=== PATIENT | female | born 1990 | race Caucasian/White ===

== ENCOUNTER 2022-03-11 11:03 | Inpatient (IN) | payer BC, SELFPAY ==
[2022-03-11] VITALS (155 sets, daily range): BP systolic 94–137; BP diastolic 45–108; PULSE 68–122; TEMP 36.4; O2SAT 88–100; BMI 32.1
--- NOTE | 2022-03-11 11:44 | PM.IMHP ---
H&P: HPI History of Present Illness Date/Time: 03/11/22 11:44 Chief Complaint: My water broke Narrative: 31 y/o G1 at 37 5/7 weeks who had a gush of fluid at 0730 this morning, with continued leakage of clear fluid. SROM confirmed grossly in office today, and I asked her to come to L&D to be admitted. GBS neg. uncomplicated. Review of Systems Review of Systems: All systems reviewed & are unremarkable except as noted in HPI and below PMFSH Family History Family History Other Patient denies significant medical history Social History Social History Substance use: never Spiritual care concerns: No Meds Home Medications and Allergies Home Medications Medication Instructions Recorded Confirmed Type prenat.vits,mary,jts-perx-vqqrv 1 tablet PO DAILY 03/04/22 03/04/22 History Allergies Allergy/AdvReac Type Severity Reaction Status Date / Time No Known Allergies Allergy Verified 03/04/22 12:25 Vital Signs Vital Signs - 24 hr 03/11/22 11:31 Pulse Rate 100 Blood Pressure 123/72 Exam Const: Orientation/consciousness: patient oriented x3 Other: Well-developed, well-nourished female in no acute distress. Neck: Thyroid: thyroid normal Lymphatic: no lymphadenopathy noted (in neck, axilla or inguinal nodes) Resp: Effort & Inspection: normal respiratory effort Auscultation: clear to auscultation bilaterally Cardio: Rate: regular rate Rhythm: regular rhythm Heart sounds: S1 normal heart sound present and S2 normal heart sound present GI: Other: ABD: Soft, nontender, nondistended, gravid. FH 36 cm. Vertex. NST reactive. TOCO: irregular contractions. No guarding or rebound tenderness. No hepatosplenomegaly. : General: Yes no CVA tenderness Other: SSE: Gross ROM with clear fluid, nitrazine pos. Cervix 1/50/-2. Back/Spine/Pelvis: Back: no CVA tenderness Skin: General skin exam: normal color and no rashes or lesions noted Neuro: General: patient oriented x3 Extrem: Other: Extremities: nontender with no edema Psych: Mental Status: mental status grossly normal Affect: normal affect Assessment and Plan Assessment and plan (1) SROM (spontaneous rupture of membranes): Status: Acute Assessment and Plan: A: IUP at 37 5/7 weeks gestation with SROM at 0730. P: Augment labor with oxytocin as needed. Anticipate . (2) Term : Code(s): Z34.90 - Encounter for supervision of normal , unspecified, unspecified trimester Status: Acute
[2022-03-11 11:45] LABS: Basophils Percent Auto 0.2 % (0.2-1.2); Eosinophils Percent Auto 0.1 % (0-4.4); Hematocrit 31.3 % (37.0-47.0); Hemoglobin 10.7 g/dL (12.0-15.0); Immature Granulocyte Absolute 0.11 K/mm3 (0.00-0.031); Immature Granulocyte Percent A 0.9 % (0-0.5); Lymphocytes Absolute Auto 1.34 K/mm3 (0.9-3.2); Lymphocytes Percent Auto 10.9 % (18.3-44.2); Mean Corpuscular HGB Conc 34.2 g/dl (32-36); Mean Corpuscular Hemoglobin 30.1 pg (26-34); Mean Corpuscular Volume 88.2 fl (80-100); Mean Platelet Volume 12.1 fl (7.4-10.4); Monocytes Absolute Auto 0.8 K/mm3 (0.1-0.6); Monocytes Percent Auto 6.6 % (2.6-8.5); Neutrophils Absolute Auto 9.9 K/mm3 (1.3-6.7); Neutrophils Percent Auto 81.3 % (45.5-73.1); Platelet Count Result 156 k/mm3 (150-375); Red Blood Count 3.55 M/mm3 (4.2-5.4); Red Cell Distribution Width 12.7 % (11.5-14.5); White Blood Count 12.2 K/mm3 (4.5-10.0)
--- NOTE | 2022-03-11 11:45 | LDADM ---
This patient, Nikia Katz, was admitted to Labor/Delivery/Recovery 104 on 03/11/22 at 11:03. Plans for labor, pain management and were discussed with patient. Patient/family oriented to hospital policies and general routines including ID bracelet, bed and alarms, visiting hours, pain management, procedures, bathroom and other care routines, personal items, smoking policy, room service/diet and guest tray routines, security routines, and visiting hours. Patient/Family are encouraged to report perceived risks to care and to ask questions if they do not understand what they are told or what they should do. See OBIX for further documentation.
[2022-03-11] MEDS: SODIUM CHLORIDE 0.9% IV 300 ML 600 ML I-UTERINE (13:44)
[2022-03-11] MEDS: LACTATED RINGERS 1,000 ML 125 ML IV CONT (14:06)
--- NOTE | 2022-03-11 14:39 | WPDANESEPPF ---
Anes - Initial Pre Proc Eval Date/Time: 03/11/22 14:39 Surgeon: Romeo Davies MD Pre Op Diagnosis: labor Patient Data Age: 31 Gender: F Height: 1.63 m Weight: 85 kg Last Vital Signs Pulse 82 03/11/22 14:31 BP 128/63 03/11/22 14:31 Pulse Ox 100 03/11/22 14:36 O2 Del Method Room Air 03/11/22 11:44 Allergies Allergy/AdvReac Type Severity Reaction Status Date / Time No Known Allergies Allergy Verified 03/04/22 12:25 Home Medications Medication Instructions Recorded Confirmed Type prenat.vits,mary,zrj-ogfh-bygjn 1 tablet PO DAILY 03/04/22 03/04/22 History Laboratory Tests 03/11/22 03/11/22 03/11/22 11:38 11:38 11:38 WBC 12.2 K/mm3 H K/mm3 (4.5-10.0) RBC 3.55 M/mm3 L M/mm3 (4.2-5.4) Hgb 10.7 g/dL L g/dL (12.0-15.0) Hct 31.3 % L % (37.0-47.0) MCV 88.2 fl fl (80-100) MCH 30.1 pg pg (26-34) MCHC 34.2 g/dl g/dl (32-36) RDW 12.7 % % (11.5-14.5) Plt Count 156 k/mm3 k/mm3 (150-375) MPV 12.1 fl H fl (7.4-10.4) Immature Gran % (Auto) 0.9 % H % (0-0.5) Neut % (Auto) 81.3 % H % (45.5-73.1) Lymph % (Auto) 10.9 % L % (18.3-44.2) [place] % (Auto) 6.6 % % (2.6-8.5) Eos % (Auto) 0.1 % % (0-4.4) Baso % (Auto) 0.2 % % (0.2-1.2) Lymph # (Auto) 1.34 K/mm3 K/mm3 (0.9-3.2) [place] # (Auto) 0.8 K/mm3 H K/mm3 (0.1-0.6) Eos # (Auto) 0.0 K/mm3 K/mm3 (0-0.3) Baso # (Auto) 0.0 K/mm3 K/mm3 (0.0-0.1) Abs Immat Gran (auto) 0.11 K/mm3 H K/mm3 (0.00-0.031) Absolute Neuts (auto) 9.9 K/mm3 H K/mm3 (1.3-6.7) Absolute Nucleated RBC 0.0 K/mm3 K/mm3 (0.0-0.012) Nucleated RBC % 0.0 % % (0.0-0.2) RPR Pending Blood Type O Positive Antibody Screen Negative Patient hx anesthesia problems: none Family hx anesthesia problems: none Results Review: All pre-operative results and documents have been reviewed as part of the pre-operative evaluation. [facility] Family History Family History Other Patient denies significant medical history Social History Social History Smoking status: Never smoker Second hand tobacco smoke exposure: No Substance use: never Lack of Transportation: No Lack of Food: Never True Current Housing: I Have Housing Concerned About Future Housing: No Difficulty Paying Gas/Electric Bills: No Difficulty Paying for Meds: No Currently Unemployed: No Education: Master's Degree or Higher Difficulty w/ Childcare or Family Care: No Spiritual care concerns: No Anes - Eval Final PreProcedure Day of Procedure 03/11/22 14:39 Patient weight: overweight Heart: regular rate and rhythm Lungs: clear to auscultation and normal air movement Airway: Mallampati scale class II Neurological: alert and oriented Last oral intake: >/= 8 hours ASA classification: II Emergent: no Anesthetic plan: proceed Anesthesia type and monitoring: regional epidural Results Review: All pre-operative results and documents have been reviewed as part of the pre-operative evaluation. Informed Consent: The patient's anesthetic plan and its attendant risks and benefits were discussed with the patient/family/POA. Questions were solicited and answers provided to the satisfaction of the patient/family/POA.
[2022-03-11] MEDS: OXYTOCIN 30 UNITS/NS 500 ML 30 UNITS/500 ML BAG IV CONT (15:00)
[2022-03-11] MEDS: LACTATED RINGERS 1,000 ML 999 ML IV CONT (15:09)
[2022-03-11 16:08] LABS: Rapid Plasma Reagin Non-Reactive (NonReactive)
--- NOTE | 2022-03-11 17:14 | PM.OBPNLAB ---
Pain Control Date/time seen: 03/11/22 17:14 Comments: Comfortable with epidural. AVSS NST reactive. Mild variables resolved with amnioinfusion. TOCO: contractions every 3 min; IUPC in place. Cervix 3/80/-2 A: IUP at term with SROM. P: Augmenting labor. Anticipate . Reviewed with Dr. Naeem Solares, who is starting call shift now. Pelvic Exam Dilation (cm): 3 Effacement (%): 80 station: -2 Contractions Contraction frequency: 3 Contraction pattern: Regular Status status: Category l
--- NOTE | 2022-03-11 22:25 | PM.OBPRVD ---
OB - Delivery Note Procedure Delivery date: 03/11/22 Induction method: None Delivery monitor: External FHT and Internal Uterine Route of delivery: Episiotomy description: None Laceration Description: None Quantitative Blood Loss (ml): 60 Anesthesia type: Epidural Disposition: Floor [place] Baby Date of : 03/11/22 Time of : 22:15 Weeks of gestation at delivery: 37 Infant gender: Male presentation: vertex position: Right Occiput Anterior Placenta delivery description: Spontaneous Cord Vessel Description: 3 Vessels, Nuchal Cord, Loose and Delayed Cord Clamping score one minute: 8 score five minutes: 9
[2022-03-11] MEDS: OXYTOCIN 30 UNITS/NS 500 ML 30 UNITS/500 ML BAG 125 UNITS IV CONT (23:01)
[2022-03-12] VITALS (7 sets, daily range): BP systolic 109–140; BP diastolic 62–77; PULSE 78–91; RESP 16–18; TEMP 36.3–36.9; O2SAT 95–99
--- NOTE | 2022-03-12 00:45 | OBPPTRN ---
Patient transferred to post room #284 via W/C. Support person present. Oriented to unit, room, information board, rooming in, admission packet and security measures. Patient verbalizes understanding.
--- NOTE | 2022-03-12 06:34 | P.PNOB_ITS ---
OB - PN: Subj Subjective Date/time seen: 03/12/22 06:34 Patient comments: no complaints, pain well controlled and tolerating diet [place] baby status: doing well and nursing well OB - PN: Obj Data Labs 03/11/22 11:38 Labs: Laboratory Results - last 24 hr 03/11/22 03/11/22 03/11/22 11:38 11:38 11:38 WBC 12.2 H RBC 3.55 L Hgb 10.7 L Hct 31.3 L MCV 88.2 MCH 30.1 MCHC 34.2 RDW 12.7 Plt Count 156 MPV 12.1 H Immature Gran % (Auto) 0.9 H Neut % (Auto) 81.3 H Lymph % (Auto) 10.9 L [place] % (Auto) 6.6 Eos % (Auto) 0.1 Baso % (Auto) 0.2 Lymph # (Auto) 1.34 [place] # (Auto) 0.8 H Eos # (Auto) 0.0 Baso # (Auto) 0.0 Abs Immat Gran (auto) 0.11 H Absolute Neuts (auto) 9.9 H Absolute Nucleated RBC 0.0 Nucleated RBC % 0.0 RPR Non-reactive Blood Type O Positive Antibody Screen Negative OB - PN A/P Plan day: 1 Plan: routine care Time Spent With Patient Time: Total time spent is greater than 50% in coordination of care (as documented) at patient's floor/unit and/or counseling patient: Time with patient: less than 15 minutes Exam Const: General: cooperative, healthy appearing and comfortable Nutritional Appearance: average body habitus Orientation/consciousness: oriented to person, oriented to place and oriented to time HENMT: Head: normal to inspection Resp: Effort & Inspection: normal respiratory effort Cardio: Rate: regular rate Rhythm: regular rhythm Heart sounds: S1 normal heart sound present and S2 normal heart sound present GI: Inspection: normal to inspection
[2022-03-12] MEDS: IBUPROFEN 600 MG TABLET PO (07:38)
[2022-03-12 08:09] LABS: Hematocrit 32.3 % (37.0-47.0); Hemoglobin 10.7 g/dL (12.0-15.0)
--- NOTE | 2022-03-12 15:54 | WPDANLDPN2 ---
Anes-Prog Note L&D Date/Time: 03/12/22 15:54 Comfortable throughout: labor and delivery Neuraxial method: epidural Epidural/Spinal procedure site: clean & non-tender Neuro status: Neuro function grossly intact. Cardiovascular status: normal Respiratory status: normal Airway patency: baseline Mental status: baseline Post-Op hydration status: normal Vital Signs: Last Vital Signs Temp 36.3 C L 03/12/22 12:00 Pulse 84 03/12/22 12:00 Resp 16 03/12/22 12:00 BP 114/77 03/12/22 12:00 Pulse Ox 96 03/12/22 12:00 O2 Del Method Room Air 03/12/22 08:00 Pain score (VAS): 2/10 I/O: Intake & Output 03/11/22 03/12/22 03/12/22 23:59 07:59 15:59 Intake Total 1500 600 Output Total 60 75 Balance 1440 -75 600 Post-procedural complaints: none Patient feedback: Patient satisfied with anesthetic care.
--- NOTE | 2022-03-13 05:45 | P.DS_ITS ---
DS: Admitting Diagnosis Discharge Date 03/13/2022 Admitting Diagnosis term in active labor DS: Discharge Diagnosis Discharge Diagnosis (1) Term : Code(s): Z34.90 - Encounter for supervision of normal , unspecified, unspecified trimester Status: Acute (2) SROM (spontaneous rupture of membranes): Status: Acute DS: Summary Hospital Course Reason for hospitalization: rupture delivered term Hospital Course: sh 1 now para 1 was admitted at term in active labor. She ruptured prior to admission underwent spontaneous vaginal delivery. Her 36hour course unremarkable. She remained afebrile. She was up, ambulating, voiding without difficulty, eating regular diet, breast-feeding, in general without complaints. Time Spent with Patient Time attestation: Total time spent providing and/or coordinating discharge services: Exam Const: General: cooperative, healthy appearing and comfortable Nutritional Appearance: average body habitus Orientation/consciousness: oriented to person, oriented to place and oriented to time HENMT: Head: normal to inspection Resp: Effort & Inspection: normal respiratory effort Cardio: Rate: regular rate Rhythm: regular rhythm Heart sounds: S1 normal heart sound present and S2 normal heart sound present GI: Inspection: normal to inspection ( Fundus firm below the umbilicus) DS: Data Data Completed and Pending Labs on day of discharge: Labs from last 24 hours 03/12/22 07:55 Hgb 10.7 L Hct 32.3 L Discharge Plan Discharge Attending physician on discharge: Jan Jang Discharging Clinician: Jan Jang Patient Disposition: Home, Self-Care Activity: may shower and no straining Diet: heart healthy Wound Care Instructions: follow printed instructions Patient Instructions: Antibiotic Form Stand Alone Forms: General Discharge Information Follow-up/Referrals: Romeo Davies MD [Physician] - Discharge Medications: Continued #2 Tablet 1 tablet PO DAILY Date of admission: 03/11/22 11:03 Primary Care Provider: PHYSICIAN,ALL SOURCE INTELLIGENCE ANALYST Admitting Provider: Romeo Davies Attending physician on admission: Romeo Davies Condition: Stable
--- NOTE | 2022-03-13 05:48 | PM.OBPNVD ---
OB - PN: Subj Subjective Date/time seen: 03/13/22 05:48 Patient comments: no complaints and pain well controlled baby status: doing well and nursing well OB - PN: Obj Data Labs 03/12/22 07:55 Labs: Laboratory Results - last 24 hr 03/12/22 07:55 Hgb 10.7 L Hct 32.3 L OB - PN A/P Plan day: 2 Plan: routine care, discharge home and follow up 6 weeks Time Spent With Patient Time: Total time spent is greater than 50% in coordination of care (as documented) at patient's floor/unit and/or counseling patient: Time with patient: less than 15 minutes Exam Const: General: cooperative, healthy appearing and comfortable Orientation/consciousness: oriented to person, oriented to place and oriented to time Resp: Effort & Inspection: normal respiratory effort Cardio: Rate: regular rate Rhythm: regular rhythm Heart sounds: S1 normal heart sound present and S2 normal heart sound present GI: Inspection: normal to inspection ( fundus firm below the umbilicus)
[2022-03-13 08:00] VITALS: BP 121/69; PULSE 79; RESP 16; TEMP 36.8; O2SAT 100
--- NOTE | 2022-03-13 08:08 | PC.NURSE ---
Patient viewed the discharge video Mother & Baby Care, The First Two Weeks . Patient was given the opportunity and encouraged to ask questions. Patient verbalized understanding of information shared and has been given the mother/baby guide for home reference.
[2022-03-15 10:42] VITALS: BP 124/68; PULSE 89; RESP 20; TEMP 36.6; O2SAT 99
== END 2022-03-13 09:37 | disposition home or self-care (01) | DRG 807 ==
LOC: ANHOB2 03-13 08:11 → ANHLDR 03-15 14:27 → ANHOB2 03-15 14:27
PROVIDERS: Admitting Provider Obstetrics & Gynecology; Visit Provider Obstetrics & Gynecology
DX: O76 Abnormality in fetal heart rate and rhythm complicating labor and delivery (principal); Z37.0 Single live birth; O69.81X0 Labor and delivery complicated by cord around neck, without compression, not applicable or unspecified; Z3A.37 37 weeks gestation of pregnancy
CPT/HCPCS: 36415; 85014; 85018; 85025; 86592; 86850; 86900; 86901; A9270; J2590; J2795; J7030; J7120

== ENCOUNTER 2023-10-11 16:28 | Inpatient (IN) | payer BC, SELFPAY ==
[2023-10-11] VITALS (22 sets, daily range): BP systolic 121–145; BP diastolic 66–83; PULSE 79–102; TEMP 36.6–37.3; BMI 34.4
[2023-10-11 17:25] LABS: Basophils Percent Auto 0.2 % (0.2-1.2); Eosinophils Absolute Auto 0.1 K/mm3 (0-0.3); Immature Granulocyte Absolute 0.07 K/mm3 (0.00-0.031); Immature Granulocyte Percent A 0.9 % (0-0.5); Lymphocytes Absolute Auto 1.41 K/mm3 (0.9-3.2); Lymphocytes Percent Auto 17.3 % (18.3-44.2); Mean Corpuscular HGB Conc 33.3 g/dl (32-36); Mean Corpuscular Hemoglobin 30.2 pg (26-34); Mean Corpuscular Volume 90.6 fl (80-100); Mean Platelet Volume 11.6 fl (7.4-10.4); Monocytes Absolute Auto 0.7 K/mm3 (0.1-0.6); Monocytes Percent Auto 8.2 % (2.6-8.5); Neutrophils Absolute Auto 5.9 K/mm3 (1.3-6.7); Neutrophils Percent Auto 72.4 % (45.5-73.1); Platelet Count Result 138 k/mm3 (150-375); Red Blood Count 3.31 M/mm3 (4.2-5.4); Red Cell Distribution Width 14.8 % (11.5-14.5); White Blood Count 8.1 K/mm3 (4.5-10.0)
[2023-10-11] MEDS: DINOPROSTONE 10 MG VAG INSERT VAGINAL (17:33)
--- NOTE | 2023-10-11 17:55 | LDADM ---
This patient, Nikia Katz, was admitted to Labor/Delivery/Recovery 105 on 10/11/23 at 16:28. Plans for labor, pain management and were discussed with patient. Patient/family oriented to hospital policies and general routines including ID bracelet, bed and alarms, visiting hours, pain management, procedures, bathroom and other care routines, personal items, smoking policy, room service/diet and guest tray routines, security routines, and visiting hours. Patient/Family are encouraged to report perceived risks to care and to ask questions if they do not understand what they are told or what they should do. See OBIX for further documentation.
[2023-10-11 18:14] LABS: HIV 1/2 Ab P24 Ag Result Negative (Negative)
--- NOTE | 2023-10-11 18:22 | WPDANESEPP ---
Anes - Eval Pre Procedure Procedure: Labor Epidural Date/Time: 10/11/23 18:22 Surgeon: Samson Preop Diagnosis: Labor Pain Pre Op Diagnosis: IOL Patient Data Age: 33 Gender: F Height: 1.63 m Weight: 90.9 kg Last Vital Signs Temp 36.6 C 10/11/23 17:40 Pulse 90 10/11/23 18:15 BP 137/70 10/11/23 18:15 Allergies Allergy/AdvReac Type Severity Reaction Status Date / Time No Known Allergies Allergy Verified 03/04/22 12:25 Home Medications Medication Instructions Recorded Confirmed Type prenat.vits,mary,kzw-cieq-ghqbh 1 tablet PO DAILY 03/04/22 10/11/23 History ferric maltol 30 mg capsule 30 mg PO BID 10/11/23 10/11/23 History (Tiffaniufer) Laboratory Tests 10/11/23 17:17 WBC 8.1 K/mm3 (4.5-10.0) RBC 3.31 L M/mm3 (4.2-5.4) Hgb 10.0 L g/dL (12.0-15.0) Hct 30.0 L % (37.0-47.0) MCV 90.6 fl (80-100) MCH 30.2 pg (26-34) MCHC 33.3 g/dl (32-36) RDW 14.8 H % (11.5-14.5) Plt Count 138 L k/mm3 (150-375) MPV 11.6 H fl (7.4-10.4) Immature Gran % (Auto) 0.9 H % (0-0.5) Neut % (Auto) 72.4 % (45.5-73.1) Lymph % (Auto) 17.3 L % (18.3-44.2) [place] % (Auto) 8.2 % (2.6-8.5) Eos % (Auto) 1.0 % (0-4.4) Baso % (Auto) 0.2 % (0.2-1.2) Lymph # (Auto) 1.41 K/mm3 (0.9-3.2) [place] # (Auto) 0.7 H K/mm3 (0.1-0.6) Eos # (Auto) 0.1 K/mm3 (0-0.3) Baso # (Auto) 0.0 K/mm3 (0.0-0.1) Abs Immat Gran (auto) 0.07 H K/mm3 (0.00-0.031) Absolute Neuts (auto) 5.9 K/mm3 (1.3-6.7) Absolute Nucleated RBC 0.000 K/mm3 (0.0-0.012) Nucleated RBC % 0.0 % (0.0-0.2) RPR Pending HIV 1&2 Ab/P24 Ag 4thGn Negative (Negative) Blood Type O Positive Antibody Screen Negative Patient hx anesthesia problems: none Family hx anesthesia problems: none Results Review: All pre-operative results and documents have been reviewed as part of the pre-operative evaluation. [facility] Family History Family History Other Patient denies significant medical history Social History Social History Smoking status: Never smoker Second hand tobacco smoke exposure: No Substance use: never Do You Feel Safe in your Home?: Yes Lack of Transportation: No Lack of Food: Never True Current Housing: I Have Housing Concerned About Future Housing: No Difficulty Paying Gas/Electric Bills: No Difficulty Paying for Meds: No Currently Unemployed: No Education: Master's Degree or Higher Difficulty w/ Childcare or Family Care: No Spiritual care concerns: No Exam Day of Procedure 10/11/23 18:22 Patient weight: normal Heart: regular rate and rhythm Lungs: normal air movement Airway: Mallampati scale class II Neurological: alert and oriented
[2023-10-11 18:39] LABS: Rapid Plasma Reagin Non-Reactive (NonReactive)
[2023-10-11] MEDS: ACETAMINOPHEN 500 MG TABLET 1000 MG PO (22:07)
[2023-10-11] MEDS: ZOLPIDEM TARTRATE (*CRX) 5 MG TABLET PO (22:08)
[2023-10-11] MEDS: LACTATED RINGERS 1,000 ML 125 ML IV CONT (23:37)
[2023-10-11] MEDS: fentaNYL CITRATE INJ (*CRX) 100 MCG/2 ML VIAL 50 MCG IV PUSH (23:41)
[2023-10-12] VITALS (64 sets, daily range): BP systolic 95–141; BP diastolic 43–96; PULSE 25–160; RESP 14–20; TEMP 36.6–37.4; O2SAT 91–100
--- NOTE | 2023-10-12 02:05 | WPDOBADMIT ---
Obstetrics - Admit Note Admission Note: record reviewed. Additions to the history and/or subsequent changes in the physical findings follow. 33 y/o at 39 2/7 weeks here for induction of labor. GBS neg. Cervidil was placed. She developed contractions and was found to have cervical dilation to 4 cm. Cervidil was removed. Epidural was placed. Cervix was subsequently 8 cm and I was notified. She is currently comfortable. AVSS NST reactive TOCO: contractions every 2-3 min ABD soft, nontender, gravid, vertex EXT nontender Cervix C/+2. No discernable amniotic sac. Small bloody show. A: IUP at term. P: Begin pushing.
[2023-10-12] MEDS: OXYTOCIN 30 UNITS/NS 500 ML 30 UNITS/500 ML BAG 999 UNITS IV CONT (02:20)
--- NOTE | 2023-10-12 02:31 | PM.OBPRVD ---
OB - Vaginal Delivery Note Procedure Delivery date: 10/12/23 Events: Elective Induction of Labor Induction method: Per Cervidil Protocol Delivery monitor: External FHT and External Uterine Route of delivery: Laceration Description: Perineal - 2nd Degree Delivery repair: vicryl (3-0) Specimen: Yes (Cord blood) Quantitative Blood Loss (ml): 180 Anesthesia type: Epidural Disposition: PACU Complications: None Narrative: 33 y/o at 39 2/7 weeks gestation who presented to the hospital for induction of labor. Cervidil was placed. She developed contractions and labor was diagnosed. Cervidil was removed. She received an epidural for pain control. Her labor progressed and her cervix dilated completely. At this point there was no amniotic sac detected. She pushed with good effort and delivered the 's head to the perineum, followed by the body. The nose and mouth were bulb suctioned. After a delay, the cord was clamped and cut. The infant was handed off the field. Cord blood was collected. The placenta delivered spontaneously and was grossly normal in appearance. The usual 3 vessel cord was noted. A second degree midline perineal laceration was sustained. This was reapproximated using 3 0 Vicryl in the usual layered fashion. Excellent hemostasis resulted as did excellent reapproximation of the normal anatomy. Needle and instrument counts were correct. The patient was taken to recovery room in stable condition. The went to the nursery in stable condition. I was present and scrubbed for the entire delivery. [place] Baby Date of : 10/12/23 Time of : 02:16 Gestational Age by Date: 39 gender: Female presentation: vertex position: Left Occiput Posterior Placenta delivery description: Spontaneous and Normal Configuration Cord Vessel Description: 3 Vessels and Delayed Cord Clamping score one minute: 8 score five minutes: 9
--- NOTE | 2023-10-12 02:33 | P.DS_ITS ---
DS: Admitting Diagnosis Discharge Date 10/13/23 Admitting Diagnosis IUP at 39 2/7 weeks DS: Discharge Diagnosis Discharge Diagnosis (1) (normal spontaneous vaginal delivery): Code(s): O80 - Encounter for full-term uncomplicated delivery Status: Acute OB - DS: Summary OB Procedures : None OB Procedures Intrapartum: Spontaneous Vag Delivery OB Procedures: : None Peripartum Data Laceration Description: Perineal - 2nd Degree Time Spent with Patient Time attestation: Total time spent providing and/or coordinating discharge services: DS: Data Data Completed and Pending Labs on day of discharge: Labs from last 24 hours 10/11/23 17:17 WBC 8.1 RBC 3.31 L Hgb 10.0 L Hct 30.0 L MCV 90.6 MCH 30.2 MCHC 33.3 RDW 14.8 H Plt Count 138 L MPV 11.6 H Immature Gran % (Auto) 0.9 H Neut % (Auto) 72.4 Lymph % (Auto) 17.3 L [place] % (Auto) 8.2 Eos % (Auto) 1.0 Baso % (Auto) 0.2 Lymph # (Auto) 1.41 [place] # (Auto) 0.7 H Eos # (Auto) 0.1 Baso # (Auto) 0.0 Abs Immat Gran (auto) 0.07 H Absolute Neuts (auto) 5.9 Absolute Nucleated RBC 0.000 Nucleated RBC % 0.0 RPR Non-reactive HIV 1&2 Ab/P24 Ag 4thGn Negative Blood Type O Positive Antibody Screen Negative Discharge Plan Discharge Attending physician on discharge: Romeo Davies Discharging Clinician: Romeo Davies Patient Disposition: Home, Self-Care Activity: pelvic rest Diet: regular Discharge Instructions: Call or return if temperature above 100.4? F, increased abdominal pain, increased vaginal bleeding or any new problems. Patient Instructions: Vaginal Delivery (DC) Stand Alone Forms: General Discharge Information Follow-up/Referrals: Romeo Davies MD [Physician] - 6 Weeks Discharge Medications: New ibuprofen 600 mg tablet 600 mg PO Q6H PRN (Reason: cramps) Qty: 30 0RF Continued prenat.vits,mary,xkb-qzqu-fvqoa Tablet 1 tablet PO DAILY Accrufer 30 mg capsule 30 mg PO BID Date of admission: 10/11/23 16:28 Primary Care Provider: PHYSICIAN,PAINT PREP TECHNICIAN Admitting Provider: Romeo Davies Attending physician on admission: Romeo Davies Condition: Stable
[2023-10-12] MEDS: OXYTOCIN 30 UNITS/NS 500 ML 30 UNITS/500 ML BAG 125 UNITS IV CONT (02:51)
[2023-10-12] MEDS: WITCH HAZEL 40 PADS 1 PAD TOPICAL (04:02)
[2023-10-12] MEDS: BENZOCAINE 20% AER SPR (*SP) 56 GM CAN 1 SPRAY TOPICAL (04:02)
--- NOTE | 2023-10-12 05:22 | OBPPTRN ---
Patient transferred to post room #282 via wheelchair. Support person - spouse Scooter present. Oriented to unit, room, information board, rooming in, admission packet and security measures. Patient verbalizes understanding.
--- NOTE | 2023-10-12 08:20 | PC.NURSE ---
Consulted with patient to assess needs related to . Discussed with mother her successes, concerns and any questions she has. We reviewed working with the , supporting breast, protecting her nipples with an optimal deep latch, good positioning. Encouraged understanding the benefits of skin to skin, responding to feeding cues, frequencies of feeding 8-12 times in 24 hours (approximately 2-3 hours), duration of feedings. Reviewed positioning and alignment, supporting breast, off-centered (asymmetrical latch) and leading with the chin with big, open, wide gape. Infant latched optimally to the [left] breast in [cross cradle] position. The infant was [able] to maintain latch without discomfort to mother. Mother pumped and bottle fed with her first baby and she isn't sure she likes . She wants to continue to try to breastfeed for now, but knows we have pumps available if she would rather pump. Mother voiced understanding of the education shared, to call for assistance if the infant does not latch or if there is discomfort with . Reported to the Primary RN.
[2023-10-12] MEDS: DOCUSATE SODIUM 100 MG CAPSULE PO (09:26)
[2023-10-12] MEDS: LORATADINE 10 MG TABLET PO (09:26)
[2023-10-12] MEDS: IBUPROFEN 600 MG TABLET PO ×2 (09:31→19:18)
--- NOTE | 2023-10-12 13:30 | PC.NURSE ---
Breast pump provided due to [maternal preference]. Baby is sleepy and hasn't eaten in four hours. Mom doesn't want to try to put baby to breast any longer and would like to pump and feed like she did with her first baby. Instructions given on cleaning, care, usage, that there should be no pain, pumping schedule for milk production, collection, and storage of human milk. Patient was assessed for correct placement, flange size (24mm), to pump for comfort and nipple stretching/stimulation for adequate milk production every 3 hours (8 times in 24 hours) 1-2 times at night. Parents educated on storage and use of breast milk including how to mix some formula with small amounts of breast milk in the pump bottle.?Mother voiced understanding of the education shared along with mom/baby guide. Reported to the Primary RN.
[2023-10-13 04:30] VITALS: BP 123/72; PULSE 77; RESP 18; TEMP 36.6; O2SAT 98
[2023-10-13 05:38] LABS: Hematocrit 29.4 % (37.0-47.0); Hemoglobin 9.8 g/dL (12.0-15.0)
[2023-10-13] MEDS: DOCUSATE SODIUM 100 MG CAPSULE PO (06:56)
[2023-10-13] MEDS: POLYSACCHARIDE IRON COMPLEX 150 MG CAPSULE PO (06:57)
[2023-10-13] MEDS: IBUPROFEN 600 MG TABLET PO (06:58)
[2023-10-13 08:20] VITALS: BP 136/78; PULSE 68; RESP 18; TEMP 36.6; O2SAT 100
--- NOTE | 2023-10-13 08:43 | PC.NURSE ---
Introductions were made, then consulted with patient to assess needs related to . Discussed with mother her?plans to feed?her and the?experience so far. Mother reports that her plan is to put baby to breast and if she is interested and breast feeds, then great if not she will use the breast pump and feed baby via bottle. Resources provided for inpatient and outpatient services, mom/baby guide and name written on the communication board. Mother voiced understanding of information and will call if there is a request for assistance. Reported to the Primary RN.
--- NOTE | 2023-10-13 09:03 | PM.OBPNVD ---
OB - PN: Subj Subjective Date/time seen: 10/13/23 09:03 Narrative: Pain OK. Would like to go home. OB - PN: Obj Data Labs 10/13/23 04:01 Labs: Laboratory Results - last 24 hr 10/13/23 04:01 Hgb 9.8 L Hct 29.4 L OB - PN A/P Plan Comments: A: PPD#1, doing well. P: Home to f/u 6 weeks. Exam Psych: Other: AVSS ABD soft, nontender, fundus firm EXT nontender
[2023-10-14 09:27] VITALS: BP 139/72; PULSE 72; RESP 18; TEMP 36.7; O2SAT 100
== END 2023-10-13 09:43 | disposition home or self-care (01) | DRG 807 ==
LOC: ANHLDR 10-12 02:34 → ANHOB2 10-12 07:01
PROVIDERS: Admitting Provider Obstetrics & Gynecology; Visit Provider Obstetrics & Gynecology
DX: O62.3 Precipitate labor (principal); Z37.0 Single live birth; Z3A.39 39 weeks gestation of pregnancy; O70.1 Second degree perineal laceration during delivery
CPT/HCPCS: 36415; 85014; 85018; 85025; 86592; 86703; 86850; 86900; 86901; A9270; G0432; J2590; J2795; J3010; J7120

== ENCOUNTER 2023-10-14 09:52 | Outpatient (CLI) | payer BC, SELFPAY ==
--- NOTE | ~2023-10-14 | US_ITS ---
EXAMINATION:US venous doppler LE RT INDICATION:Right leg swelling TECHNIQUE: Multiple grayscale, color flow and Doppler images of the right lower extremity deep venous systems were obtained and reviewed. COMPARISON:No prior studies for comparison. FINDINGS: The common femoral, superficial femoral and popliteal veins demonstrate normal respiratory variation, augmentation and compressibility. Color flow is also seen within the posterior tibial, pe roneal, greater saphenous and profunda veins. IMPRESSION: 1: No lower extremity deep venous thrombosis. Reviewed, dictated and finalized at location B.
--- NOTE | 2023-10-14 11:16 | PC.NURSE ---
Dr. Davies on unit and informed her doppler study of right leg was negative.
== END 2023-10-14 10:49 ==
LOC: ANHOBOP 10:04 → ANHLDR 10:06
PROVIDERS: Visit Provider Obstetrics & Gynecology
DX: M79.89 Other specified soft tissue disorders (principal)
CPT/HCPCS: 93971; 99199